=== PATIENT | female | born 1965 | race African-American/Black ===

== ENCOUNTER 2017-12-30 10:39 | Inpatient (IN) ==
[2017-12-30] MEDS ORDERED: SODIUM CHLORIDE 0.9% 1,000 ML IV STA (11:33)
[2017-12-30 12:46] LABS: Apearance,Urine Slightly Hazy (Clear); Blood, Urine Negative (Negative); Glucose,Urine (UA) Negative (Negative); Hyaline Casts,Urine 73 /LPF (0-3); Ketones,Urine 5 mg/dL (Negative); Mucus,Urine Occasional /LPF (Occasional); Nitrite,Urine Negative (Negative); Protein,Urine Negative; RBC,Urine 2 /HPF (0-4); Squamous Epithelial Cell,Urine Occasional /HPF (0-10); Urine Color Amber (Yellow); Urine Specific Gravity 1.015 (1.001-1.035); WBC,Urine 1 /HPF (0-6)
[2017-12-30 12:48] LABS: Bilirubin,Urine Small mg/dL (Negative)
[2017-12-30 12:56] LABS: Barbiturates Screen,Urine Negative (Negative); Benzodiazepines Screen,Urine Negative (Negative); Cannabinoid Screen,Urine Negative (Negative); Opiate Screen,Urine Negative (Negative); Phencyclidine Screen,Urine Negative (Negative)
[2017-12-30 13:01] LABS: Basophils % 0.5 % (0.0-0.8); Eosinophils # 0.2 10*3/uL (0.0-0.87); Eosinophils % 2.8 % (0.00-10.9); Hematocrit 27.8 VOL% (35.7-47.0); Hemoglobin 9.8 GM/DL (12.0-16.0); Immature Granulocytes % 1.5 %; Lymphocytes # 1.4 10*3/uL (1.4-4.0); Lymphocytes % 21.4 % (21.3-54.2); Mean Corpuscular HGB Conc 35.3 GM/DL (32-36); Mean Corpuscular Hemoglobin 30 PG (27-34); Mean Corpuscular Volume 86.3 FL (87-102); Monocytes # 0.9 10*3/uL (0.11-0.8); Monocytes % 13.6 % (1.7-12.7); Neutrophils # 3.9 10*3/uL (1.4-7.4); Neutrophils % 60.2 % (38.7-73.9); Red Blood Count 3.22 MC/CUMM (3.8-5.5); Red Cell Distribution Width 23.2 % (9.3-17.3); White Blood Count 6.5 T/CUMM (4-12)
[2017-12-30 13:15] LABS: INR 1.6; PT Patient Result 17.1 SECS
[2017-12-30 13:22] LABS: Mean Platelet Volume 11.5 FL (9.6-12.0)
[2017-12-30 13:24] LABS: Platelet Count 42 T/CUMM (130-400)
[2017-12-30 13:26] LABS: Ammonia 41 UMOL/L (11-32)
[2017-12-30 13:33] LABS: Alanine Aminotransferase 126 U/L (13-56); Albumin 1.7 G/DL (3.4-5.0); Alkaline Phosphatase 155 U/L (45-117); Aspartate Amino Transferase 224 U/L (0-37); Blood Urea Nitrogen 38 MG/DL (7-18); Calcium 8.6 MG/DL (8.5-10.1); Glucose 90 MG/DL (74-106); Osmolality,Calculated 272.5 MOS/KG (273-304); Potassium 4.9 MMOL/L (3.5-5.1); Sodium 132 MMOL/L (136-145); Total Protein 7.5 G/DL (6.4-8.3)
[2017-12-30 13:52] LABS: Partial Thromboplastin Time 46.7 SECS (0-40)
[2017-12-30 14:13] LABS: Hepatitis A Ab IgM Quant 0.12 Index; Hepatitis A Ab IgM Result Negative (Negative); Hepatitis B Core IgM Quant 0.18 Index; Hepatitis B Core IgM Result Negative (Negative); Hepatitis B Surface Ag Quant < 0.10 Index; Hepatitis B Surface Ag Result Negative (Negative); Hepatitis C Virus Ab Quant 0.23 Index; Hepatitis C Virus Ab Result Negative (Negative)
[2017-12-30] MEDS ORDERED: PNEUMOCOCCAL VACCINE (23 VALENT) 0.5 ML VIAL IM ONE (16:10)
[2017-12-30] MEDS ORDERED: ONDANSETRON 4 MG/2 ML VIAL IV PRN (17:13)
[2017-12-30] MEDS: FUROSEMIDE 40 MG/4 ML VIAL IV SCH (17:20)
[2017-12-30] MEDS: LACTULOSE 20 GM/30 ML UDCUP PO SCH ×2 (17:40→21:56)
[2017-12-30] MEDS: METOPROLOL SUCCINATE XL 100 MG TABLET PO SCH (17:40)
[2017-12-30] MEDS: FERROUS SULFATE 325 MG TABLET PO SCH (17:40)
[2017-12-30] MEDS: PANTOPRAZOLE 40 MG TABLET PO SCH ×2 (17:40→21:55)
[2017-12-30] MEDS: SPIRONOLACTONE 25 MG TABLET PO SCH (21:56)
[2017-12-31 06:30] LABS: Basophils % 0.5 % (0.0-0.8); Eosinophils # 0.2 10*3/uL (0.0-0.87); Hematocrit 24.9 VOL% (35.7-47.0); Hemoglobin 8.9 GM/DL (12.0-16.0); Immature Granulocytes % 1.4 %; Immature Granulocytes Absolute 0.08 #; Lymphocytes # 1.3 10*3/uL (1.4-4.0); Lymphocytes % 21.7 % (21.3-54.2); Mean Corpuscular HGB Conc 35.7 GM/DL (32-36); Mean Corpuscular Hemoglobin 30 PG (27-34); Monocytes % 16.5 % (1.7-12.7); NRBC # 0.02 10*3/uL; Neutrophils # 3.2 10*3/uL (1.4-7.4); Neutrophils % 55.9 % (38.7-73.9); Platelet Count 42 T/CUMM (130-400); Red Blood Count 2.93 MC/CUMM (3.8-5.5); Red Cell Distribution Width 23.4 % (9.3-17.3); White Blood Count 5.8 T/CUMM (4-12)
[2017-12-31 07:05] LABS: Albumin 1.4 G/DL (3.4-5.0); Bilirubin,Total 8.9 MG/DL (0.2-1.0); Calcium 8.4 MG/DL (8.5-10.1); Hypochromasia 1+; Osmolality,Calculated 276.1 MOS/KG (273-304); Platelet Estimate Decreased; Potassium 4.1 MMOL/L (3.5-5.1); Target Cells Few; Total Protein 6.2 G/DL (6.4-8.3)
[2017-12-31] MEDS: LEVOTHYROXINE 50 MCG TABLET PO SCH (07:33)
[2017-12-31] MEDS: SPIRONOLACTONE 25 MG TABLET PO SCH ×2 (09:48→22:01)
[2017-12-31] MEDS: LACTULOSE 20 GM/30 ML UDCUP PO SCH ×2 (09:48→22:01)
[2017-12-31] MEDS: PANTOPRAZOLE 40 MG TABLET PO SCH ×2 (09:48→22:01)
[2017-12-31] MEDS: METOPROLOL SUCCINATE XL 100 MG TABLET PO SCH (09:48)
[2017-12-31] MEDS: FERROUS SULFATE 325 MG TABLET PO SCH (09:48)
[2017-12-31] MEDS: FUROSEMIDE 40 MG/4 ML VIAL IV SCH ×2 (09:48→16:01)
[2017-12-31] MEDS: NYSTATIN POWDER 15 GM BOTTLE TOP SCH (22:52)
[2018-01-01] MEDS: LEVOTHYROXINE 50 MCG TABLET PO SCH (06:34)
[2018-01-01 07:43] LABS: Hepatitis A Ab IgM Result Negative (Negative); Hepatitis B Core IgM Quant 0.18 Index; Hepatitis B Core IgM Result Negative (Negative); Hepatitis B Surface Ag Quant < 0.10 Index; Hepatitis B Surface Ag Result Negative (Negative); Hepatitis C Virus Ab Quant 0.77 Index; Hepatitis C Virus Ab Result Negative (Negative)
[2018-01-01 08:40] LABS: Hemoglobin 9.1 GM/DL (12.0-16.0)
[2018-01-01] MEDS: SPIRONOLACTONE 25 MG TABLET PO SCH ×2 (08:42→21:24)
[2018-01-01] MEDS: FERROUS SULFATE 325 MG TABLET PO SCH (08:42)
[2018-01-01] MEDS: LACTULOSE 20 GM/30 ML UDCUP PO SCH ×3 (08:42→21:23)
[2018-01-01] MEDS: PANTOPRAZOLE 40 MG TABLET PO SCH ×2 (08:42→21:24)
[2018-01-01] MEDS: METOPROLOL SUCCINATE XL 100 MG TABLET PO SCH (08:42)
[2018-01-01] MEDS: FUROSEMIDE 40 MG/4 ML VIAL IV SCH ×2 (08:43→15:12)
[2018-01-01] MEDS: NYSTATIN POWDER 15 GM BOTTLE TOP SCH ×2 (09:12→21:24)
[2018-01-01] MEDS: RIFAXIMIN 550 MG TABLET PO SCH (21:23)
[2018-01-02 06:50] LABS: Basophils % 0.4 % (0.0-0.8); Eosinophils # 0.3 10*3/uL (0.0-0.87); Eosinophils % 3.7 % (0.00-10.9); Hematocrit 24.3 VOL% (35.7-47.0); Hemoglobin 8.5 GM/DL (12.0-16.0); Immature Granulocytes % 2.2 %; Immature Granulocytes Absolute 0.15 #; Lymphocytes # 1.7 10*3/uL (1.4-4.0); Lymphocytes % 25.4 % (21.3-54.2); Mean Corpuscular Hemoglobin 31 PG (27-34); Mean Corpuscular Volume 88.4 FL (87-102); Mean Platelet Volume 12.4 FL (9.6-12.0); Monocytes # 1.1 10*3/uL (0.11-0.8); Monocytes % 16.2 % (1.7-12.7); NRBC # 0.02 10*3/uL; Neutrophils # 3.5 10*3/uL (1.4-7.4); Neutrophils % 52.1 % (38.7-73.9); Platelet Count 51 T/CUMM (130-400); Red Blood Count 2.75 MC/CUMM (3.8-5.5); Red Cell Distribution Width 23.9 % (9.3-17.3); White Blood Count 6.7 T/CUMM (4-12)
[2018-01-02 07:22] LABS: Eosinophils 1 % (0-10); Giant Platelets Few; Hypochromasia 1+; Lymphocytes 17 % (20-55); Nucleated Red Blood Cells 1 (0-5); Ovalocytes Slight; Platelet Estimate Decreased; Segmented Neutrophils 67 % (50-85); Target Cells Few; Total Cells Counted 100
[2018-01-02 07:23] LABS: Albumin 1.6 G/DL (3.4-5.0); Calcium 8.7 MG/DL (8.5-10.1); Osmolality,Calculated 277.1 MOS/KG (273-304); Potassium 3.9 MMOL/L (3.5-5.1)
[2018-01-02 08:13] LABS: Hepatitis A Ab IgM Quant 0.07 Index; Hepatitis A Ab IgM Result Negative (Negative); Hepatitis B Core IgM Quant 0.18 Index; Hepatitis B Core IgM Result Negative (Negative); Hepatitis B Surface Ag Quant < 0.10 Index; Hepatitis B Surface Ag Result Negative (Negative); Hepatitis C Virus Ab Quant 0.29 Index; Hepatitis C Virus Ab Result Negative (Negative)
[2018-01-02] MEDS: LEVOTHYROXINE 50 MCG TABLET PO SCH (08:39)
[2018-01-02] MEDS: LACTULOSE 20 GM/30 ML UDCUP PO SCH ×5 (08:39→21:42)
[2018-01-02] MEDS: SPIRONOLACTONE 25 MG TABLET PO SCH ×2 (08:39→21:42)
[2018-01-02] MEDS: PANTOPRAZOLE 40 MG TABLET PO SCH ×2 (08:40→21:42)
[2018-01-02] MEDS: RIFAXIMIN 550 MG TABLET PO SCH ×2 (08:40→21:43)
[2018-01-02] MEDS: METOPROLOL SUCCINATE XL 100 MG TABLET PO SCH (08:40)
[2018-01-02] MEDS: FERROUS SULFATE 325 MG TABLET PO SCH (08:40)
[2018-01-02] MEDS: NYSTATIN POWDER 15 GM BOTTLE TOP SCH ×2 (10:23→21:43)
[2018-01-02] MEDS: FUROSEMIDE 40 MG/4 ML VIAL IV SCH ×2 (10:23→15:00)
[2018-01-02] MEDS ORDERED: PROPOFOL 200 MG/20 ML VIAL IV ONE (12:53)
[2018-01-02] MEDS ORDERED: PHENYLEPHRINE 1 MG/10 ML SYRINGE IV ONE (12:53)
[2018-01-02] MEDS ORDERED: LIDOCAINE 100 MG/5 ML SYRINGE ONE (12:53)
[2018-01-03] MEDS: LACTULOSE 20 GM/30 ML UDCUP PO SCH ×6 (02:02→21:36)
[2018-01-03 06:38] LABS: Basophils % 0.5 % (0.0-0.8); Eosinophils # 0.2 10*3/uL (0.0-0.87); Eosinophils % 3.2 % (0.00-10.9); Hematocrit 21.9 VOL% (35.7-47.0); Hemoglobin 7.8 GM/DL (12.0-16.0); Immature Granulocytes % 1.9 %; Immature Granulocytes Absolute 0.12 #; Lymphocytes # 1.6 10*3/uL (1.4-4.0); Lymphocytes % 25.8 % (21.3-54.2); Mean Corpuscular HGB Conc 35.6 GM/DL (32-36); Mean Corpuscular Hemoglobin 31 PG (27-34); Mean Platelet Volume 11.8 FL (9.6-12.0); Monocytes % 16.2 % (1.7-12.7); NRBC # 0.04 10*3/uL; Neutrophils # 3.2 10*3/uL (1.4-7.4); Neutrophils % 52.4 % (38.7-73.9); Platelet Count 45 T/CUMM (130-400); Red Blood Count 2.49 MC/CUMM (3.8-5.5); Red Cell Distribution Width 23.9 % (9.3-17.3); White Blood Count 6.2 T/CUMM (4-12)
[2018-01-03 07:05] LABS: Eosinophils 3 % (0-10); Giant Platelets Few; Hypochromasia 1+; Lymphocytes 21 % (20-55); Nucleated Red Blood Cells 1 (0-5); Platelet Estimate Decreased; Segmented Neutrophils 58 % (50-85); Target Cells Few; Total Cells Counted 100
[2018-01-03] MEDS: FUROSEMIDE 40 MG/4 ML VIAL IV SCH (07:08)
[2018-01-03] MEDS: LEVOTHYROXINE 50 MCG TABLET PO SCH (07:17)
[2018-01-03 07:19] LABS: Calcium 8.7 MG/DL (8.5-10.1); Osmolality,Calculated 284.5 MOS/KG (273-304); Potassium 3.7 MMOL/L (3.5-5.1)
[2018-01-03 07:34] LABS: Albumin 1.4 G/DL (3.4-5.0); Bilirubin,Direct 5.95 MG/DL (0.0-0.20); Bilirubin,Indirect 2.2 MG/DL (0.0-1.0); Bilirubin,Total 8.1 MG/DL (0.2-1.0)
[2018-01-03] MEDS: SPIRONOLACTONE 25 MG TABLET PO SCH ×2 (09:04→21:35)
[2018-01-03] MEDS: FERROUS SULFATE 325 MG TABLET PO SCH (09:04)
[2018-01-03] MEDS: PANTOPRAZOLE 40 MG TABLET PO SCH ×2 (09:04→21:35)
[2018-01-03] MEDS: METOPROLOL SUCCINATE XL 100 MG TABLET PO SCH (09:04)
[2018-01-03] MEDS: RIFAXIMIN 550 MG TABLET PO SCH ×2 (09:04→21:35)
[2018-01-03] MEDS: NYSTATIN POWDER 15 GM BOTTLE TOP SCH ×2 (09:05→21:42)
[2018-01-03] MEDS ORDERED: SODIUM CHLORIDE 0.9% 1,000 ML IV PRN (09:47)
[2018-01-03] MEDS: ZALEPLON 5 MG CAPSULE PO PRN (21:35)
[2018-01-04] MEDS: LACTULOSE 20 GM/30 ML UDCUP PO SCH ×6 (03:03→22:00)
[2018-01-04] MEDS: LEVOTHYROXINE 50 MCG TABLET PO SCH (06:27)
[2018-01-04 06:56] LABS: Basophils # 0.1 10*3/uL (0.0-0.2); Basophils % 0.7 % (0.0-0.8); Eosinophils # 0.2 10*3/uL (0.0-0.87); Eosinophils % 3.5 % (0.00-10.9); Hematocrit 30.5 VOL% (35.7-47.0); Immature Granulocytes % 2.8 %; Immature Granulocytes Absolute 0.19 #; Lymphocytes # 1.8 10*3/uL (1.4-4.0); Lymphocytes % 26.3 % (21.3-54.2); Mean Corpuscular HGB Conc 35.7 GM/DL (32-36); Mean Corpuscular Hemoglobin 31 PG (27-34); Mean Corpuscular Volume 85.4 FL (87-102); Mean Platelet Volume 12.4 FL (9.6-12.0); Monocytes # 1.2 10*3/uL (0.11-0.8); Monocytes % 17.4 % (1.7-12.7); NRBC # 0.06 10*3/uL; Neutrophils # 3.4 10*3/uL (1.4-7.4); Neutrophils % 49.3 % (38.7-73.9); Red Blood Count 3.57 MC/CUMM (3.8-5.5); Red Cell Distribution Width 22.6 % (9.3-17.3); White Blood Count 6.9 T/CUMM (4-12)
[2018-01-04 07:08] LABS: Hemoglobin 10.9 GM/DL (12.0-16.0)
[2018-01-04 07:10] LABS: Platelet Count 34 T/CUMM (130-400)
[2018-01-04 07:26] LABS: Albumin 1.6 G/DL (3.4-5.0); Bilirubin,Direct 6.63 MG/DL (0.0-0.20); Bilirubin,Indirect 3.1 MG/DL (0.0-1.0); Bilirubin,Total 9.7 MG/DL (0.2-1.0); Total Protein 6.7 G/DL (6.4-8.3)
[2018-01-04 07:29] LABS: Eosinophils 3 % (0-10); Lymphocytes 28 % (20-55); Microcytosis 1+; Segmented Neutrophils 56 % (50-85); Target Cells Few; Total Cells Counted 100
[2018-01-04 07:30] LABS: Anisocytosis 1+
[2018-01-04 07:33] LABS: Calcium 8.7 MG/DL (8.5-10.1); Osmolality,Calculated 283.7 MOS/KG (273-304); Potassium 3.7 MMOL/L (3.5-5.1)
[2018-01-04 07:35] LABS: Burr Cells Few
[2018-01-04 07:36] LABS: Platelet Estimate Decreased
[2018-01-04] MEDS: RIFAXIMIN 550 MG TABLET PO SCH ×2 (09:20→20:51)
[2018-01-04] MEDS: SPIRONOLACTONE 25 MG TABLET PO SCH ×2 (09:21→20:51)
[2018-01-04] MEDS: NYSTATIN POWDER 15 GM BOTTLE TOP SCH ×2 (09:21→21:15)
[2018-01-04] MEDS: PANTOPRAZOLE 40 MG TABLET PO SCH (09:21)
[2018-01-04] MEDS: FERROUS SULFATE 325 MG TABLET PO SCH (09:21)
[2018-01-04] MEDS: METOPROLOL SUCCINATE XL 100 MG TABLET PO SCH (09:21)
[2018-01-04] MEDS: PANTOPRAZOLE 20 MG TABLET PO SCH (14:36)
[2018-01-04] MEDS: ZALEPLON 5 MG CAPSULE PO PRN (20:51)
[2018-01-05] MEDS: LACTULOSE 20 GM/30 ML UDCUP PO SCH ×6 (02:07→21:10)
[2018-01-05] MEDS: LEVOTHYROXINE 50 MCG TABLET PO SCH (06:34)
[2018-01-05 06:49] LABS: Basophils % 0.6 % (0.0-0.8); Eosinophils # 0.2 10*3/uL (0.0-0.87); Hematocrit 27.3 VOL% (35.7-47.0); Hemoglobin 9.9 GM/DL (12.0-16.0); Lymphocytes # 1.6 10*3/uL (1.4-4.0); Lymphocytes % 24.4 % (21.3-54.2); Mean Corpuscular HGB Conc 36.3 GM/DL (32-36); Mean Corpuscular Hemoglobin 31 PG (27-34); Mean Platelet Volume 10.7 FL (9.6-12.0); Monocytes # 1.2 10*3/uL (0.11-0.8); Monocytes % 17.6 % (1.7-12.7); Neutrophils # 3.5 10*3/uL (1.4-7.4); Neutrophils % 51.4 % (38.7-73.9); Red Blood Count 3.21 MC/CUMM (3.8-5.5); Red Cell Distribution Width 22.4 % (9.3-17.3); White Blood Count 6.7 T/CUMM (4-12)
[2018-01-05 07:00] LABS: Platelet Count 38 T/CUMM (130-400)
[2018-01-05 07:10] LABS: Band Neutrophils 1 % (0-10); Eosinophils 5 % (0-10); Hypochromasia 1+; Lymphocytes 21 % (20-55); Metamyelocytes 1 %; Myelocytes 1 %; Segmented Neutrophils 60 % (50-85); Total Cells Counted 100
[2018-01-05 07:11] LABS: Anisocytosis 1+; Burr Cells Few; Microcytosis 1+; Target Cells Few
[2018-01-05 07:12] LABS: Platelet Estimate Decreased; Polychromasia Slight
[2018-01-05 07:16] LABS: Calcium 8.6 MG/DL (8.5-10.1); Osmolality,Calculated 283.7 MOS/KG (273-304); Potassium 3.2 MMOL/L (3.5-5.1)
[2018-01-05 07:20] LABS: Albumin 1.5 G/DL (3.4-5.0); Bilirubin,Direct 6.52 MG/DL (0.0-0.20); Bilirubin,Indirect 2.8 MG/DL (0.0-1.0); Bilirubin,Total 9.3 MG/DL (0.2-1.0); Calcium 8.6 MG/DL (8.5-10.1); Osmolality,Calculated 281.8 MOS/KG (273-304); Potassium 3.1 MMOL/L (3.5-5.1); Total Protein 6.5 G/DL (6.4-8.3)
[2018-01-05] MEDS: NYSTATIN POWDER 15 GM BOTTLE TOP SCH ×2 (09:37→21:12)
[2018-01-05] MEDS: SPIRONOLACTONE 25 MG TABLET PO SCH ×2 (09:37→21:10)
[2018-01-05] MEDS: FERROUS SULFATE 325 MG TABLET PO SCH (09:37)
[2018-01-05] MEDS: METOPROLOL SUCCINATE XL 100 MG TABLET PO SCH (09:38)
[2018-01-05] MEDS: PANTOPRAZOLE 20 MG TABLET PO SCH (09:38)
[2018-01-05] MEDS: RIFAXIMIN 550 MG TABLET PO SCH ×2 (09:38→21:12)
[2018-01-05 11:46] LABS: Hepatitis B Surface Ab Result Positive
[2018-01-05] MEDS: POTASSIUM CHLORIDE 20 MEQ TABLET PO SCH (16:03)
[2018-01-05] MEDS ORDERED: INFLUENZA VIRUS VACCINE 0.5 ML SYRINGE IM ONE (17:33)
[2018-01-05] MEDS ORDERED: PNEUMOCOCCAL VACCINE (23 VALENT) 0.5 ML VIAL IM ONE (17:34)
[2018-01-05] MEDS: ZALEPLON 5 MG CAPSULE PO PRN (21:10)
[2018-01-06] MEDS: LACTULOSE 20 GM/30 ML UDCUP PO SCH ×5 (02:08→17:33)
[2018-01-06] MEDS: LEVOTHYROXINE 50 MCG TABLET PO SCH ×2 (06:04→10:25)
[2018-01-06 06:38] LABS: Basophils % 0.6 % (0.0-0.8); Eosinophils # 0.2 10*3/uL (0.0-0.87); Eosinophils % 2.3 % (0.00-10.9); Hematocrit 27.5 VOL% (35.7-47.0); Hemoglobin 9.8 GM/DL (12.0-16.0); Immature Granulocytes % 4.1 %; Immature Granulocytes Absolute 0.29 #; Lymphocytes # 1.5 10*3/uL (1.4-4.0); Lymphocytes % 21.4 % (21.3-54.2); Mean Corpuscular HGB Conc 35.6 GM/DL (32-36); Mean Corpuscular Hemoglobin 31 PG (27-34); Mean Corpuscular Volume 85.9 FL (87-102); Mean Platelet Volume 11.9 FL (9.6-12.0); Monocytes # 1.1 10*3/uL (0.11-0.8); Monocytes % 15.8 % (1.7-12.7); NRBC # 0.03 10*3/uL; Neutrophils % 55.8 % (38.7-73.9); Platelet Count 40 T/CUMM (130-400); Red Cell Distribution Width 22.4 % (9.3-17.3); White Blood Count 7.1 T/CUMM (4-12)
[2018-01-06 07:04] LABS: Band Neutrophils 3 % (0-10); Eosinophils 1 % (0-10); Hypochromasia 1+; Lymphocytes 14 % (20-55); Platelet Estimate Decreased; Segmented Neutrophils 75 % (50-85); Target Cells Slight; Total Cells Counted 100
[2018-01-06 07:14] LABS: Albumin 1.5 G/DL (3.4-5.0); Bilirubin,Direct 6.06 MG/DL (0.0-0.20); Bilirubin,Indirect 3.4 MG/DL (0.0-1.0); Bilirubin,Total 9.5 MG/DL (0.2-1.0); Total Protein 6.4 G/DL (6.4-8.3)
[2018-01-06 07:58] LABS: Albumin 1.4 G/DL (3.4-5.0); Bilirubin,Total 8.6 MG/DL (0.2-1.0); Calcium 8.4 MG/DL (8.5-10.1); Osmolality,Calculated 286.5 MOS/KG (273-304); Potassium 3.4 MMOL/L (3.5-5.1); Total Protein 6.8 G/DL (6.4-8.3)
[2018-01-06] MEDS: FERROUS SULFATE 325 MG TABLET PO SCH (10:23)
[2018-01-06] MEDS: RIFAXIMIN 550 MG TABLET PO SCH ×2 (10:23→21:49)
[2018-01-06] MEDS: METOPROLOL SUCCINATE XL 100 MG TABLET PO SCH (10:24)
[2018-01-06] MEDS: SPIRONOLACTONE 25 MG TABLET PO SCH ×2 (10:24→21:46)
[2018-01-06] MEDS: POTASSIUM CHLORIDE 20 MEQ TABLET PO SCH ×2 (10:24→21:46)
[2018-01-06] MEDS: PANTOPRAZOLE 20 MG TABLET PO SCH (10:25)
[2018-01-06] MEDS: NYSTATIN POWDER 15 GM BOTTLE TOP SCH ×2 (10:25→21:48)
[2018-01-06] MEDS: ZALEPLON 5 MG CAPSULE PO PRN (21:46)
[2018-01-07] MEDS: LACTULOSE 20 GM/30 ML UDCUP PO SCH ×7 (00:37→22:52)
[2018-01-07] MEDS: LEVOTHYROXINE 50 MCG TABLET PO SCH (06:02)
[2018-01-07] MEDS: FERROUS SULFATE 325 MG TABLET PO SCH (09:15)
[2018-01-07] MEDS: POTASSIUM CHLORIDE 20 MEQ TABLET PO SCH ×2 (09:15→21:01)
[2018-01-07] MEDS: SPIRONOLACTONE 25 MG TABLET PO SCH ×2 (09:15→21:01)
[2018-01-07] MEDS: METOPROLOL SUCCINATE XL 100 MG TABLET PO SCH (09:15)
[2018-01-07] MEDS: RIFAXIMIN 550 MG TABLET PO SCH ×2 (09:16→21:01)
[2018-01-07] MEDS: NYSTATIN POWDER 15 GM BOTTLE TOP SCH ×2 (09:16→21:01)
[2018-01-07] MEDS: PANTOPRAZOLE 20 MG TABLET PO SCH (09:16)
[2018-01-07] MEDS ORDERED: FUROSEMIDE 40 MG TABLET PO SCH (16:00)
[2018-01-07] MEDS ORDERED: TUBERCULIN SKIN TEST 0.1 ML SYRINGE INTRADERM ONE (16:45)
[2018-01-07] MEDS: ZALEPLON 5 MG CAPSULE PO PRN (21:26)
[2018-01-07 22:24] VITALS: BP 120/67
== END 2018-01-08 03:11 | disposition expired | DRG 441 ==
LOC: N.ED 10:39 → SUATTDRO 14:04 → N.EDINP 14:04 → N.5E 15:47
PROVIDERS: ADMIT Internal Medicine; ATTEND Internal Medicine
PROC: EGDWEBL (ICD-10-PCS; 2018-01-02 11:35)